=== PATIENT | female | born 1955 | race Two or more races ===

== ENCOUNTER → 2020-10-31 | Day surgery (SDC) | payer OTHER | END | disposition home or self-care (01) | LOC: FMAMMOTONE 10:41 | PROVIDERS: ATTEND Surgery | PROC: 0H9U3ZX Drainage of Left Breast, Percutaneous Approach, Diagnostic (ICD-10-PCS; principal; 2020-10-31) | DX: N60.82 Other benign mammary dysplasias of left breast (principal) | CPT/HCPCS: 19081; 76098-TC-FY; 87899; A4648 ==